=== PATIENT | male | born 1995 | race Caucasian/White ===

== ENCOUNTER 2017-02-04 08:31 | Emergency (ER) | payer OTHER ==
--- NOTE | 2017-02-04 08:57 | ED ---
Back Pain HPI - General Chief Complaint: Back Pain/Injury Stated Complaint: lower back pain Time Seen by Provider: 02/04/17 08:49 Source: patient, RN notes reviewed Mode of arrival: ambulatory Limitations: no limitations - History of Present Illness Initial Comments: This a 21-year-old male presents emergency Department chief complaint right low back pain. Patient states started after lifting a tote of candy. 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 Patient states his service. He felt a strain in his right low back. He did initially have some pain that radiates down his right leg though he does not have a symptoms at this time. Patient denies any bowel, bladder incontinence or retention. Denies any saddle anesthesias. Denies any lower extremity paresthesias. Patient has no abdominal pain denies any difficulty urinating. Patient states it is worse with movement better at rest. Patient states there is some tightening, spasm-like pain in his right low back. Patient states he did telephone Dr. states he was given Flexeril and diclofenac. Patient states that the Flexeril is making him vomit. Patient does not take his medicine the past. - Related Data Home Medications Medication Instructions Recorded Confirmed Cyclobenzaprine [Flexeril] 10 mg PO HS PRN 02/04/17 02/04/17 Diclofenac Sodium [Voltaren] 75 mg PO BID 02/04/17 02/04/17 Previous Rx's Medication Instructions Recorded Hydrocodone/Acetaminophen [[place] 1 tab PO Q6HR PRN #20 tab 02/04/17 5-325] Ondansetron Odt [Zofran Odt] 4 mg PO Q8HR PRN #10 tab 02/04/17 Allergies Allergy/AdvReac Type Severity Reaction Status Date / Time No Known Allergies Allergy Unverified 02/04/17 09:03 Review of Systems ROS Statement: Those systems with pertinent positive or pertinent negative responses have been documented in the HPI. ROS Other: All systems not noted in ROS Statement are negative. Past Medical History Past Medical History: No Reported History History of Any Multi-Drug Resistant Organisms: None Reported Past Surgical History: No Surgical Hx Reported Smoking Status: Never smoker Past Alcohol Use History: Occasional Past Drug Use History: None Reported General Exam Limitations: no limitations General appearance: alert, in no apparent distress Head exam: Present: atraumatic, normocephalic, normal inspection Neck exam: Present: normal inspection, full ROM. Absent: tenderness, meningismus, lymphadenopathy Respiratory exam: Present: normal lung sounds bilaterally. Absent: respiratory distress, wheezes, rales, rhonchi, stridor Cardiovascular Exam: Present: regular rate, normal rhythm, normal heart sounds. Absent: systolic murmur, diastolic murmur, rubs, gallop, clicks GI/Abdominal exam: Present: soft, normal bowel sounds. Absent: distended, tenderness, guarding, rebound, rigid Extremities exam: Present: normal inspection, full ROM, normal capillary refill , other (Normal strength lower extremities 5/5+2 pulses equal bilaterally). Absent: tenderness, pedal edema, joint swelling, calf tenderness Back exam: Present: full ROM, tenderness (Mild tenderness along the lumbar paraspinals on the right), muscle spasm, paraspinal tenderness (Right lumbar), other (Pain with right straight leg raise). Absent: CVA tenderness (R), CVA tenderness (L), vertebral tenderness Neurological exam: Present: alert, oriented X3, CN II-XII intact, reflexes normal. Absent: motor sensory deficit Skin exam: Present: warm, dry, intact, normal color. Absent: rash Course Vital Signs 02/04/17 08:45 Temperature 99.2 F Pulse Rate 125 H Respiratory 18 Rate Blood Pressure 200/98 O2 Sat by Pulse 98 Oximetry Medical Decision Making - Medical Decision Making 21-year-old male presented for right low back pain. Patient does feel better after IM injection, pain medication. Patient we discharged at this time with close follow-up. Return parameters were discussed. Disposition Clinical Impression: Strain of lumbar region Disposition: HOME SELF-CARE Condition: Stable Instructions: Acute Low Back Pain (ED) Additional Instructions: Please return to the Emergency Department if symptoms worsen or any other concerns. Prescriptions: Hydrocodone/Acetaminophen [[place] 5-325] 1 tab PO Q6HR PRN #20 tab PRN Reason: Pain Ondansetron Odt [Zofran Odt] 4 mg PO Q8HR PRN #10 tab PRN Reason: Nausea Time of Disposition: 09:28
[2017-02-04] MEDS: DIAZEPAM 5 MG/ML 2 ML SYRINGE IM STA (09:10)
[2017-02-04] MEDS: ONDANSETRON ODT 4 MG TAB PO STA (09:10)
[2017-02-04] MEDS: HYDROcodone/APAP 5-325MG 1 EACH TAB PO STA (09:10)
[2017-02-04] MEDS: KETOROLAC 60 MG/2 ML VIAL IM STA (09:10)
[2017-02-04 09:38] VITALS: TEMP 98.3
[2017-02-04 09:52] VITALS: BP 112/68; PULSE 79; RESP 18
== END 2017-02-04 09:52 | disposition home or self-care (01) ==
LOC: EC 08:31
DX: S33.5XXA Sprain of ligaments of lumbar spine, initial encounter (principal); Z79.899 Other long term (current) drug therapy; X50.0XXA Overexertion from strenuous movement or load, initial encounter; Y99.0 Civilian activity done for income or pay
CPT/HCPCS: 99283; 96372 ×2; J3360; J1885

== ENCOUNTER → 2020-08-14 | Outpatient (CLI) | payer OTHER | END | disposition home or self-care (01) | LOC: LABWHC1 10:55 | PROVIDERS: ATTEND Nurse Practitioner Family | DX: Z20.828 Contact with and (suspected) exposure to other viral communicable diseases (principal) | CPT/HCPCS: U0003; C9803 ==

== ENCOUNTER → 2020-12-17 | Outpatient (CLI) | payer OTHER | END | disposition home or self-care (01) | LOC: LABWHC1 12:30 | PROVIDERS: ATTEND Family Medicine | DX: Z20.822 Contact with and (suspected) exposure to COVID-19 (principal) | CPT/HCPCS: U0003; C9803; U0005 ==